=== PATIENT | female | born 1960 | race American Indian/Alaskan Native ===

== ENCOUNTER 2023-10-01 06:46 | Emergency (ER) | payer MEDICAID ==
[~2023-10-01] VITALS: Ht 157.5 cm; Wt 54.7 kg
[2023-10-01] MEDS ORDERED: morphine 4 MG/ML inj SYRINge IV ONE (07:20)
[2023-10-01] MEDS ORDERED: ringers solution, lacted 1,000 ML IV ONE (07:20)
[2023-10-01] MEDS ORDERED: iohexol 300mg/ml 100ml inj. ONE (07:58)
[2023-10-01 08:05] LABS: BASOPHILS # (AUTO) 0.1 X10'3 (0-0.2); BASOPHILS % (AUTO) 1.1 % (0-1); EOSINOPHILS # (AUTO) 0.3 X10'3 (0-0.9); EOSINOPHILS % (AUTO) 2.7 % (0-6); HEMATOCRIT 42.4 % (35.0-45.0); HEMOGLOBIN 13.8 g/dl (12.0-16.0); LYMPHOCYTES # (AUTO) 4.2 X10'3 (1.1-4.8); LYMPHOCYTES % (AUTO) 39.7 % (21-51); MEAN CORPUSCULAR HEMOGLOBIN 28.6 PG (27.0-31.0); MEAN CORPUSCULAR HGB CONC 32.6 g/dL (33.0-36.5); MEAN CORPUSCULAR VOLUME 87.7 FL (78-98); MEAN PLATELET VOLUME 7.7 FL (7.4-10.4); MONOCYTES # (AUTO) 0.6 X10'3 (0-0.9); MONOCYTES % (AUTO) 5.6 % (2-12); NEUTROPHILS # (AUTO) 5.4 X10'3 (1.8-7.7); NEUTROPHILS % (AUTO) 50.9 % (42-75); PLATELET COUNT 340 X10'3 (140-440); RED BLOOD COUNT 4.84 X10'6 (4.20-5.60); RED CELL DISTRIBUTION WIDTH 13.4 % (11.5-14.5); WHITE BLOOD COUNT 10.6 X10'3 (4.5-11.0)
[2023-10-01 08:13] LABS: ANION GAP 13 (8-16); BLOOD UREA NITROGEN 6 MG/DL (7-18); BUN/CREATININE RATIO 5.8 (10.0-20.0); CHLORIDE 103 MMOL/L (99-107); CREATININE 1.04 MG/DL (0.40-0.90); GLUCOSE 157 MG/DL (70-104); POTASSIUM 3.1 MMOL/L (3.5-5.1); SODIUM 142 MMOL/L (135-145); TOTAL CARBON DIOXIDE 26.2 MMOL/L (24-32)
[2023-10-01 08:14] LABS: ALANINE AMINOTRANSFERASE 30 U/L (12-78); ALBUMIN 3.6 G/DL (3.4-5.0); ALBUMIN/GLOBULIN RATIO 0.9 (1.1-1.5); ALKALINE PHOSPHATASE 107 IU/L (46-116); AMYLASE 56 U/L (25-115); ASPARTATE AMINO TRANSFERASE 25 U/L (10-37); BILIRUBIN,TOTAL 0.4 MG/DL (0.1-1.0); CALCIUM 9.1 MG/DL (8.5-10.1); LIPASE 33 U/L (16-77); TOTAL PROTEIN 7.6 G/DL (6.4-8.2); eCRCL 44 ML/MIN; eGFR 54 ML/MIN
[2023-10-01 08:51] LABS: BILIRUBIN,URINE NEGATIVE (Neg); GLUCOSE, URINE NEGATIVE (Neg); KETONES,URINE NEGATIVE (Neg); LEUKOCYTE ESTERASE ,URINE TRACE (Neg); NITRITES, URINE NEGATIVE (Neg); OCCULT BLOOD,URINE LARGE (Neg); PH,URINE 6.5 (4.8-8.0); PROTEIN,URINE 30 mg/dl (Neg); UROBILINOGEN,URINE 0.2 E.U/dL (0.2-1.0)
[2023-10-01 08:52] LABS: CLARITY,URINE CLOUDY (Clear); COLOR,URINE Brown (Yellow); UA COLLECTION TYPE CLN CATCH MIDSTREAM
[2023-10-01 09:10] LABS: BETA HCG,QUANTITATIVE 2 mIU/ml
[2023-10-01 09:11] LABS: BACTERIA,URINE 1+ /HPF (Neg); RBC,URINE TNTC /HPF (0-2); SQUAMOUS EPITHELIAL CELL,UR FEW /LPF (FEW)
[2023-10-01] MEDS ORDERED: HYDROmorphone 1 mg/ml syringe IV ONE (09:20)
[2023-10-01] MEDS ORDERED: CefTRIAXone/D5W-Rocephin 1gm 50 ML IV ONE (11:50)
[2023-10-01] MEDS ORDERED: FLO0.4C PO (11:53)
[2023-10-01] MEDS ORDERED: CIPR-259 PO (11:53)
[2023-10-01] MEDS ORDERED: KETO10TA2 PO (11:53)
[2023-10-01 13:17] VITALS: BP 112/48; PULSE 72; RESP 16; O2SAT 99
[2023-10-01 13:18] VITALS: TEMP 97.8
== END 2023-10-01 13:21 | disposition home or self-care (01) ==
LOC: ER 06:47
DX: N20.0 Calculus of kidney (principal); N39.0 Urinary tract infection, site not specified; R31.9 Hematuria, unspecified; Z79.899 Other long term (current) drug therapy
CPT/HCPCS: 36415; 74177; 80053; 81001; 82150; 83690; 84702; 85025; 87088; 96361; 96374; 96375; 99285; J0696; J1170; J2270; J3490; J7120; Q9967

== ENCOUNTER 2024-07-25 18:39 | Emergency (ER) | payer MEDICAID ==
[~2024-07-25] VITALS: Ht 157.5 cm; Wt 0.6 kg
[~2024-07-25 18:39] MED LIST: KETO10TA2 PO
[2024-07-25 18:42] VITALS: BP 173/79; PULSE 76; O2SAT 99
[2024-07-25] MEDS ORDERED: amoxicillin 250mg capsule PO STA (19:45)
[2024-07-25] MEDS ORDERED: ACET-1025 PO (19:51)
[2024-07-25] MEDS ORDERED: IBUP-1985 PO (19:51)
[2024-07-25] MEDS ORDERED: AMOX875T10 PO (19:51)
[2024-07-25] MEDS: amoxicillin 250mg capsule PO STA (20:11)
[2024-07-25 20:12] VITALS: RESP 18
[2024-07-25] MEDS: ketorolac trometh 30MG/ML vial 30 MG/ML VIAL IM STA (20:12)
[2024-07-25 20:13] VITALS: TEMP 98.6
== END 2024-07-25 20:22 | disposition home or self-care (01) ==
LOC: ER 18:39
DX: K08.89 Other specified disorders of teeth and supporting structures (principal); Z79.899 Other long term (current) drug therapy
CPT/HCPCS: 96372; 99283; J1885